=== PATIENT | female | born 1960 | race Caucasian/White ===

== ENCOUNTER 2017-02-02 10:57 | Emergency (ER) | payer OTHER ==
[~2017-02-02] VITALS: Ht 167.6 cm; Wt 124.5 kg
[2017-02-02] MEDS ORDERED: MAALOX/HYOSCYAMINE/LIDOCAINE 45 ML BTL ONE (11:31)
[2017-02-02] MEDS ORDERED: SODIUM CHLORIDE FLUSH 10ML SYR IVF ONE ×2 (12:00)
[2017-02-02] MEDS ORDERED: ONDANSETRON 2MG/ML, 2ML IVPush ONE (12:00)
[2017-02-02] MEDS ORDERED: SODIUM CHLORIDE 0.9% 1,000ML IVBOLUS ONE ×2 (12:00)
[2017-02-02] MEDS ORDERED: MAALOX/HYOSCYAMINE/LIDOCAINE 45 ML BTL PO ONE (12:00)
[2017-02-02] MEDS ORDERED: ONDANSETRON 2MG/ML, 2ML ONE (12:00)
[2017-02-02] MEDS ORDERED: morphine SULFATE 10 MG/ML, 1ML ONE (12:00)
[2017-02-02] MEDS ORDERED: MORPHINE SULFATE 4 MG/ML, 1ML IVPush PRN (12:00)
[2017-02-02 12:22] LABS: HEMATOCRIT 40.4 % (34.6-47.8); HEMOGLOBIN 13.4 g/dL (11.7-16.4); WHITE BLOOD COUNT 9.4 x10^3/uL (3.4-10)
[2017-02-02 12:35] LABS: ASPARTATE AMINO TRANSFERASE 21 U/L (15-37); BLOOD UREA NITROGEN 9 mg/dL (7-18); IS PT STATUS REG ER OR PRE ER? YES
[2017-02-02 14:20] VITALS: BP 161/66
== END 2017-02-02 14:44 | disposition home or self-care (01) ==
LOC: ED 13:00
DX: K29.00 Acute gastritis without bleeding (principal); K76.0 Fatty (change of) liver, not elsewhere classified; I10 Essential (primary) hypertension
CPT/HCPCS: 36415; 76700; 80053; 83605; 83690; 84484; 85025; 93005; 96361; 96374; 96375; 99285; J2405; J7030